=== PATIENT | female | born 1990 | race Hispanic/Latino ===

== ENCOUNTER 2018-03-01 23:32 | Inpatient (IN) | payer OTHER ==
[2018-03-02] MEDS ORDERED: ZOFRAN IV ONE ×2 (00:44→03:32)
[2018-03-02] MEDS ORDERED: NACL 0.9% 1000 ML 1,000 ML IV ONE ×3 (00:45→15:52)
--- NOTE | 2018-03-02 00:48 | Emergency Department Report ---
Stated Complaint: MISCARRIAGE - HPI History of Present Illness: 28-year-old female presents to the emergency department with a complaint of pelvic cramping and heavy vaginal bleeding. 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 Patient says that she has pretty had the miscarriage but she has been passing large clots and has had heavy vaginal bleeding all day. She says that she is going through multiple pads per hour, and is bleeding through her clothes and her mattress. She is now very anxious, feeling dizzy, nauseated. - ROS Review of Systems: Positive for pelvic cramping, heavy vaginal bleeding, dizziness, nausea - Exam Vital Signs: Vital Signs 03/02/18 00:08 Temperature 98.7 F Pulse Rate 101 H Respiratory 18 Rate Blood Pressure 115/80 O2 Sat by Pulse 97 Oximetry MSE screening note: Focused history and physical exam performed. Due to findings the following was ordered: I have ordered a CBC, BMP, quantitative level, type and screen. She will have a transvaginal/stent to ultrasound to evaluate for retained products of conception or other etiology of the heavy bleeding. She will get an IV, IV fluid and Zofran. ED Disposition for MSE Condition: Stable
[2018-03-02 01:15] LABS: Basophils # (Auto) 0.1 K/mm3 (0.0-0.1); Basophils % (Auto) 0.7 % (0.0-1.8); Eosinophils # (Auto) 0.2 K/mm3 (0.0-0.4); Eosinophils % (Auto) 2.2 % (0.0-4.3); Hematocrit 38.1 % (30.3-42.9); Lymphocytes # (Auto) 2.4 K/mm3 (1.2-5.4); Lymphocytes % (Auto) 23.7 % (13.4-35.0); Mean Corpuscular HGB Conc 34 % (30-34); Mean Corpuscular Hemoglobin 31 pg (28-32); Mean Corpuscular Volume 92 fl (79-97); Monocytes # (Auto) 0.6 K/mm3 (0.0-0.8); Monocytes % (Auto) 5.7 % (0.0-7.3); Platelet Count 270 K/mm3 (140-440); Red Blood Count 4.17 M/mm3 (3.65-5.03); Red Cell Distribution Width 12.8 % (13.2-15.2)
[2018-03-02 01:33] LABS: BUN/Creatinine Ratio 10; Blood Urea Nitrogen 8 mg/dL (7-17); Calcium 9.1 mg/dL (8.4-10.2); Hemolysis Index 3
[2018-03-02] MEDS ORDERED: NORCO 5/325 ONE (01:41)
[2018-03-02] MEDS ORDERED: NORCO 5/325 PO ONE (01:48)
--- NOTE | 2018-03-02 03:21 | Ultrasound Report ---
FINAL REPORT EXAM: US OB < = 14 WEEKS FETUS HISTORY: miscarriage, heavy vaginal bleeding TECHNIQUE: Transabdominal imaging was obtained of the pelvis. FINDINGS: The uterus is anteverted measuring 12.8 cm x 5 cm x 5.6 cm. A normal intrauterine gestational sac and IUP are not identified. There is a heterogeneous tissue like structure in the cervix measuring 5.5 cm x 6.3 cm x 7.9 cm. This is compatible with retained products of conception. The endometrial thickness in the fundus is 5.4 mm. The right ovary measures 4.7 cm x 3.5 cm x 3.8 cm. Within the right ovary is 4.7 cm anechoic cyst. The left ovary is not seen. Free fluid is not identified IMPRESSION: Heterogeneous echogenic material in the cervix compatible with an incomplete with retained products of conception 4.7 cm functional cyst in the right ovary. No evidence of free fluid.
--- NOTE | 2018-03-02 03:23 | Ultrasound Report ---
FINAL REPORT EXAM: US OB TRANSVAGINAL HISTORY: miscarriage, heavy vaginal bleeding TECHNIQUE: Additional transvaginal imaging was obtained of the pelvis. FINDINGS: The uterus measures 12.8 cm x 5 cm x 5.6 cm. There is no evidence of an intact gestational sac and IUP. Within the cervix is heterogeneous echogenic material measuring 5.5 cm x 6.3 cm x 7.9 cm compatible with retained products of conception and an incomplete miscarriage. Free fluid is not seen. In the uterine fundus the endometrial thickness is 5.4 mm. The right ovary measures 4.7 cm x 3.5 cm x 3.8 cm. Within the right ovary is an anechoic cyst measuring 4.7 cm in diameter. Left ovary is not seen. IMPRESSION: Echogenic material in the cervix compatible with an incomplete with retained products of conception. 4.7 cm functional cyst in the right ovary. No evidence of free fluid.
[2018-03-02] MEDS ORDERED: SUBLIMAZE IV ONE (03:32)
--- NOTE | 2018-03-02 03:40 | Emergency Department Report ---
HPI - General Chief Complaint: Vaginal Bleeding Time Seen by Provider: 03/02/18 03:21 - [facility] HPI: Room 25 The patient is a 28-year-old female presenting with chief complaint of vaginal bleeding. The patient states she had a miscarriage and was given Cytotec and took her first dose today at 15:00. The patient states she began having heavy vaginal bleeding and proximal one hour after the first dose of medication. Patient states the bleeding continued and she took her second dose at 19:00. The patient states she is passed approximately 10 baseball-sized blood clots vaginally. The patient states she gets dizzy whenever she stands she feels nauseous. The patient gives her pain score of 5-6/10 Location: Pelvis Duration: Onset 1600 Quality: Cramping Severity: 5-6/10 Modifying factors: [see above] Context: [see above] Mode of transportation: [not driving] ED Past Medical Hx - Past Medical History Hx Kidney Stones: Yes (2006) - Surgical History Past Surgical History?: No - Family History Family history: no significant - Social History Smoking Status: Former Smoker (none 5 years) Substance Use Type: Alcohol (rarely) - Medications Home Medications: Home Medications Medication Instructions Recorded Confirmed Last Taken Type Biotin 2 cap PO DAILY 08/08/14 08/08/14 08/07/14 History HYDROcodone/ACETAMINOPHEN [Lortab 15 ml PO Q4-6H PRN #30 dose 08/08/14 Unknown Rx 10 mg-300 mg per 15 ML ORAL LIQ] Vit-Fe Fumar-FA [ 1 each PO ONCE 08/08/14 08/08/14 08/07/14 History Vitamin] ED Review of Systems ROS: Stated complaint: MISCARRIAGE Other details as noted in HPI Constitutional: weakness Eyes: denies: eye pain ENT: denies: throat pain Respiratory: no symptoms reported Cardiovascular: denies: chest pain Endocrine: no symptoms reported Gastrointestinal: abdominal pain, nausea Genitourinary: abnormal menses Musculoskeletal: back pain Neurological: other (lightheadedness) Physical Exam - Physical Exam Vital Signs: Vital Signs 03/02/18 03/02/18 03/02/18 00:08 01:11 01:58 Temperature 98.7 F 98.7 F Pulse Rate 101 H 94 H Respiratory 18 16 16 Rate Blood Pressure 115/80 115/80 Blood Pressure [Left] O2 Sat by Pulse 97 98 98 Oximetry 03/02/18 02:00 Temperature Pulse Rate 89 Respiratory 14 Rate Blood Pressure Blood Pressure 109/65 [Left] O2 Sat by Pulse 99 Oximetry Physical Exam: GENERAL: The patient is well-developed well-nourished female lying on stretcher appearing pale. [] HEENT: Normocephalic. Atraumatic. Extraocular motions are intact. Patient has moist mucous membranes. NECK: Supple. Trachea midline CHEST/LUNGS: Clear to auscultation. There is no respiratory distress noted. HEART/CARDIOVASCULAR: Regular. There is no tachycardia. There is no gallop rub or murmur. ABDOMEN: Abdomen is soft, with suprapubic discomfort. Patient has normal bowel sounds. There is no abdominal distention. SKIN: There is no rash. There is no edema. There is no diaphoresis. NEURO: The patient is awake, alert, and oriented. The patient is cooperative. The patient has normal speech MUSCULOSKELETAL: There is no evidence of acute injury. PELVIC: Heavy vaginal bleeding with clots. 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 Elias. Will admit the patient to mother baby ED Medical Decision Making - Lab Data Result diagrams: 03/02/18 00:51 03/02/18 00:51 - Differential Diagnosis retained products of conception Critical care attestation.: If time is entered above; I have spent that time in minutes in the direct care of this critically ill patient, excluding procedure time. ED Disposition Clinical Impression: Incomplete , Episode of heavy vaginal bleeding, Retained products of conception Disposition: OP ADMIT IP TO THIS HOSP Is pt being admited?: Yes Does the pt Need Aspirin: No Condition: Fair Referrals: PRIMARY CARE, [Primary Care Provider] - 3-5 Days Time of Disposition: 05:03
--- NOTE | 2018-03-02 08:45 | History and Physical Report ---
History of Present Illness Date of examination: 03/02/18 Date of admission: 03/02/18 05:01 Chief complaint: vaginal bleeding History of present illness: 28y/o @ 6 weeks ega that presents with vaginal bleeding and passage of clots. The patient reports feeling lightheaded. Pelvic ultrasound demonstrated retained POC in the lower uterus or possible cervix. The patient was advised that a D&C would be beneficial but she declines. The patient was using cytotec for facilitate passage of tissue when the bleeding became excessive Past History Past Medical History: other (obesity) Past Surgical History: cholecystectomy, other (laparoscopy) Social history: - Obstetrical History : 2 Para: 1 Hx # Term Pregnancies: 1 Number of Pregnancies: 0 Spontaneous Abortions: 0 Induced : 0 Number of Living Children: 1 Medications and Allergies Allergies Allergy/AdvReac Type Severity Reaction Status Date / Time No Known Allergies Allergy Verified 08/08/14 07:17 Home Medications Medication Instructions Recorded Confirmed Last Taken Type Biotin 2 cap PO DAILY 08/08/14 08/08/14 08/07/14 History HYDROcodone/ACETAMINOPHEN [Lortab 15 ml PO Q4-6H PRN #30 dose 08/08/14 Unknown Rx 10 mg-300 mg per 15 ML ORAL LIQ] Vit-Fe Fumar-FA [ 1 each PO ONCE 08/08/14 08/08/14 08/07/14 History Vitamin] Active Meds: Active Medications Acetaminophen (Tylenol) 650 mg PO Q4H PRN PRN Reason: Pain, Mild (1-3) Dextrose/Lactated Ringer's (D5lr) 1,000 mls @ 125 mls/hr IV DIRECT ELIZABETH Methylergonovine Maleate (Methergine) 0.2 mg PO Q8HR ELIZABETH Methylergonovine Maleate (Methergine) 0.2 mg IM ONCE ONE Stop: 03/02/18 08:39 Ondansetron HCl (Zofran) 4 mg IV Q8H PRN PRN Reason: Nausea And Vomiting Oxycodone/Acetaminophen (Percocet 5/325) 2 tab PO Q6H PRN PRN Reason: Pain, Moderate (4-6) Review of Systems All systems: negative Constitutional: fatigue, weakness Genitourinary: vaginal bleeding, pelvic pain - Vital Signs Vital signs: Vital Signs Temp Pulse Resp BP Pulse Ox 98.7 F 101 H 18 115/80 97 03/02/18 00:08 03/02/18 00:08 03/02/18 00:08 03/02/18 00:08 03/02/18 00:08 Temp Pulse Resp BP Pulse Ox 97.9 F 82 18 93/65 99 03/02/18 07:51 03/02/18 07:51 03/02/18 07:51 03/02/18 07:51 03/02/18 07:51 - Physical Exam Breasts: Positive: deferred Cardiovascular: Regular rate Lungs: Positive: Clear to auscultation Abdomen: Positive: normal appearance Results Result Diagrams: 03/02/18 13:05 03/02/18 00:51 Abnormal lab results 03/02/18 03/02/18 03/02/18 Range/Units 00:51 00:51 00:51 RDW 12.8 L (13.2-15.2) % Glucose 107 H (65-100) mg/dL HCG, Quant 7910 H (0-4) mIU/mL All other labs normal. Assessment and Plan - Patient Problems (1) Episode of heavy vaginal bleeding Current Visit: Yes Status: Acute Plan to address problem: will admit for observation administer methergine expectant management (2) Incomplete Current Visit: Yes Status: Acute (3) Retained products of conception Current Visit: Yes Status: Acute
[2018-03-02] MEDS ORDERED: METHERGINE IM NR (09:30)
[2018-03-02] MEDS ORDERED: MORPHINE IV PRN (09:30)
[2018-03-02] MEDS: D5LR 1,000 ML IV SCH ×2 (09:40→20:52)
[2018-03-02] MEDS ORDERED: ZOFRAN IV PRN (10:00)
[2018-03-02] MEDS: PERCOCET 5/325 PO PRN ×2 (10:35→20:56)
[2018-03-02 13:33] LABS: Hematocrit 26.8 % (30.3-42.9); Hemoglobin 9.1 gm/dl (10.1-14.3)
[2018-03-02] MEDS: METHERGINE PO SCH ×3 (16:00→22:16)
[2018-03-02] MEDS: TYLENOL PO PRN (18:35)
[2018-03-03] MEDS: METHERGINE PO SCH ×3 (06:30→22:18)
[2018-03-03] MEDS: TYLENOL PO PRN ×2 (06:30→11:45)
[2018-03-03 07:20] LABS: Hematocrit 22.1 % (30.3-42.9); Hemoglobin 7.6 gm/dl (10.1-14.3)
--- NOTE | 2018-03-03 09:38 | Ultrasound Report ---
ULTRASOUND PELVIS COMPLETE INDICATION: Incomplete . COMPARISON: Yesterday. FINDINGS: Transabdominal pelvic ultrasound demonstrates a prominent echogenic endometrial thickness at approximately 2 cm towards the fundus, image 23 with some hemorrhagic material not excluded. No viable intrauterine gestation. Homogenous, 10.1 x 4.6 x 6.5 cm anteverted uterus. No significant pelvic free fluid. Right ovary is 4.7 x 2.4 x 3.4 cm with a 2.9 cm cyst. Unremarkable left ovary at 2.6 x 1.1 x 1.6 cm. CONCLUSION: 1. Prominent/thickened echogenic endometrium with some hemorrhagic material again not excluded in light of provided history. 2. Few other findings, as above. Thank you for the opportunity to participate in this patient's care.
[2018-03-03] MEDS ORDERED: NACL 0.9% 500 ML 500 ML IV NR (11:45)
[2018-03-03] MEDS: D5LR 1,000 ML IV SCH (11:47)
--- NOTE | 2018-03-03 11:49 | Progress Note ---
Assessment and Plan - Patient Problems (1) Episode of heavy vaginal bleeding Current Visit: Yes Status: Acute (2) Incomplete Current Visit: Yes Status: Acute (3) Retained products of conception Current Visit: Yes Status: Acute Plan to address problem: will proceed with d&c transfuse 2 units prbcs for symptomatic anemia Subjective - Subjective Date of service: 03/03/18 Interval history: The patient reports still having vaginal bleeding. She complains of a headache while sitting up and is unable to ambulate without feeling dizzy. Pelvic ultrasound demonstrates a thickened endometrial stripe of 2cm likely consistent with retained products. The patient has elected to proceed with a D&C after failing medical management. Patient reports: dizzy ambulation Objective - Vital Signs Latest vital signs: Vital Signs Temp Pulse Resp BP BP Pulse Ox 03/03/18 09:45 97.8 F 86 20 92/67 03/03/18 03:34 97.9 F 79 16 99/62 100 03/02/18 23:16 98.9 F 103 H 18 123/65 96 03/02/18 20:00 97.5 F L 85 20 103/53 95 03/02/18 15:45 97.7 F 105 H 18 92/44 100 Intake and Output 03/02/18 03/03/18 03/03/18 22:59 06:59 14:59 Intake Total 1000 220 Output Total 450 Balance 550 220 Intake: IV 1000 D5lr 1,000 ml @ 125 mls/ 1000 hr IV DIRECT ELIZABETH Rx#: [id number] Oral 220 Output: Urine 450 Void 450 Other: Intake, Other Source Saline Solution Total, Intake Amount 120 Total, Output Amount 250 Voiding Method Bedside Commode # Voids Void 2 - Labs Labs: Abnormal lab results 03/02/18 03/02/18 03/03/18 Range/Units 00:51 13:05 06:53 Hgb 9.1 L D 7.6 L (10.1-14.3) gm/dl Hct 26.8 L D 22.1 L (30.3-42.9) % Crossmatch See Detail
--- NOTE | 2018-03-03 16:59 | Operative Report ---
Operative Report Operative Report: Date of surgery: 03/03/2018 Preoperative diagnosis: Incomplete Postoperative diagnosis: Same as above Procedure: Suction dilatation and curettage Surgeon: Faby Elias M.D. Anesthesia: Gen. endotracheal anesthesia Estimated blood loss: 100 mL Findings: Products of conception Indication: 28-year-old 001 at approximately 6-7 weeks estimated gestational age who presents with a history of incomplete . The patient attempted medical management without complete resolution in her miscarriage. She continues to have significant vaginal bleeding with a development of symptomatic anemia. Procedure: The patient was taken to the operating room and given general endotracheal anesthesia without complication. The patient is prepped and draped in a normal sterile fashion. A bivalve speculum was placed in the patient's vagina and a single-tooth tenaculums placed on the anterior lip of the cervix. The uterine cavity was then sounded. The cervical os was then dilated with graduated dilators. A number 7 [place]an curved cannula was placed to suction and found to be adequate. The cannula was then gently inserted into the dilated cervical os. Evacuation of the uterine contents were performed. Sharp curettage and endometrial surface was performed until cry was achieved. The cannula was then gently reinserted into the uterine cavity to evacuate any additional contents. After removal of the cannula there was no evidence of any active bleeding. The vaginal instruments were then removed atraumatically. The patient was then successfully extubated and taken to the recovery room in stable condition. All sponge laps and needle counts were correct 2. Pathology consisted of products of conception.
[2018-03-03] MEDS ORDERED: TORADOL IV PRN (17:00)
[2018-03-03] MEDS ORDERED: SUBLIMAZE ONE (17:12)
[2018-03-03] MEDS ORDERED: VERSED ONE (17:12)
[2018-03-03] MEDS ORDERED: DIPRIVAN 10 MG/ML IV ONE (17:19)
[2018-03-03] MEDS ORDERED: DILAUDID IV PRN (17:26)
--- NOTE | 2018-03-03 17:26 | Anesthesia Day of Surgery ---
Anesthesia Day of Surgery - Day of Surgery Patient Examined: Yes Patient H&P Reviewed: Yes Patient is NPO: Yes
--- NOTE | 2018-03-03 17:26 | Anesthesia Consultation ---
Anesthesia Consult and Med Hx Date of service: 03/03/18 - Airway Anesthetic Teeth Evaluation: Good ROM Head & Neck: Adequate Mental/Hyoid Distance: Adequate Mallampati Class: Class II Intubation Access Assessment: Probably Good - Pulmonary Exam CTA: Yes - Cardiac Exam Cardiac Exam: RRR - Pre-Operative Health Status ASA Pre-Surgery Classification: ASA3 Proposed Anesthetic Plan: General - Pulmonary Hx Smoking: Yes (8 YEARS 1/2 PPD; CIGARETTES) Hx Asthma: No COPD: No - Cardiovascular System Hx Hypertension: No Hx Heart Attack/AMI: No - Central Nervous System Hx Seizures: No CVA: No - Gastrointestinal Hx Gastroesophageal Reflux Disease: Yes (mild) - Endocrine Hx Renal Disease: No Hx Liver Disease: No Hx Insulin Dependent Diabetes: No Hx Thyroid Disease: No - Hematic Hx Anemia: Yes - Other Systems Hx Alcohol Use: Yes (weekly) Hx Cancer: No Hx Obesity: Yes - Additional Comments Anesthesia Medical History Comments: Presenting with fatigue, dizziness 2/2 anemia from missed AB @ 6wks with retained POC. NPO >8hrs. No hx anesthetic complications. Unit 2 of 2 pRBCs transfusing upon arrival to OR.
[2018-03-03] MEDS ORDERED: METHERGINE IM ONE (17:33)
[2018-03-03] MEDS ORDERED: SILVER NITRATE TP ONE (17:34)
[2018-03-03] MEDS ORDERED: ZOFRAN ONE (17:40)
[2018-03-03] MEDS ORDERED: DECADRON ONE (17:59)
[2018-03-03] MEDS ORDERED: NACL 0.9% 1000 ML 1,000 ML IV SCH (18:00)
[2018-03-03] MEDS ORDERED: BENADRYL ONE (18:02)
[2018-03-03] MEDS ORDERED: DEMEROL ONE (18:08)
[2018-03-03] MEDS ORDERED: PEPCID IV ONE (18:12)
[2018-03-03] MEDS ORDERED: NACL 0.9% 1000 ML 1,000 ML ONE (18:23)
--- NOTE | 2018-03-03 21:39 | Post Anesthesia Evaluation ---
- Post Anesthesia Evaluation Patient Participated: Yes Airway Patent: Yes Stable Respiratory Function: Yes Nausea/Vomiting: No Temp > 96.8F: Yes Pain Manageable: Yes Adequeate Hydration: Yes Anesthesia Complications: No Other Comments: After arrival to PACU, patient complained of itching and was noted to have hive-like rash on arms, chest, abdomen, thighs, and legs. There was no associated dyspnea, wheezing, or hypotention. Presumed allergic reaction to medication, likely methergine as this was the last medication given in surgery. Treated with benadryl 50mg IV, decadron 12mg IV, and pepcid 20mg IV with improvement in rash and itching at time of transfer to floor.
[2018-03-04 01:47] VITALS: BP 100/67
[2018-03-04 05:42] LABS: Hematocrit 30.6 % (30.3-42.9); Hemoglobin 10.5 gm/dl (10.1-14.3)
[2018-03-04] MEDS: D5LR 1,000 ML IV SCH (05:50)
[2018-03-04] MEDS: METHERGINE PO SCH (05:51)
--- NOTE | 2018-03-04 08:24 | Progress Note ---
Assessment and Plan - Patient Problems (1) Episode of heavy vaginal bleeding Current Visit: Yes Status: Acute Plan to address problem: Patient doing well Discharge home (2) Incomplete Current Visit: Yes Status: Acute (3) Retained products of conception Current Visit: Yes Status: Acute Subjective - Subjective Date of service: 03/04/18 Principal diagnosis: incomplete Interval history: The patient reports feeling much better today. Her headache has subsided and she is able to sit up and ambulate without difficulty. She is tolerating a regular diet and her pain is well controlled. The patient only reports scant amount of vaginal bleeding. Patient reports: appetite normal, voiding normally, pain well controlled Objective - Vital Signs Latest vital signs: Vital Signs Temp Pulse Resp BP BP Pulse Ox 03/04/18 01:46 98.3 F 77 16 100/67 95 03/03/18 22:00 98.4 F 93 H 18 99/45 96 03/03/18 19:55 97.9 F 76 18 113/68 100 03/03/18 19:30 97.8 F 74 17 104/61 98 03/03/18 19:15 68 15 103/62 95 03/03/18 19:00 76 17 102/62 96 03/03/18 18:45 75 20 101/56 99 03/03/18 18:30 75 20 103/53 99 03/03/18 18:15 93 H 11 L 107/71 100 03/03/18 18:05 102 H 16 128/105 100 03/03/18 18:00 103 H 13 104/66 100 03/03/18 17:55 91 H 11 L 103/57 100 03/03/18 17:46 98.0 F 97 H 16 109/48 100 03/03/18 16:55 98.3 F 85 18 101/49 99 03/03/18 16:40 98.8 F 85 20 97/55 03/03/18 15:17 98.7 F 79 18 98/54 03/03/18 14:55 98.6 F 78 18 91/51 99 03/03/18 14:25 98.9 F 78 18 98/58 99 03/03/18 13:55 98.8 F 76 18 102/54 100 03/03/18 13:25 98.8 F 73 18 92/52 100 03/03/18 13:10 98.7 F 77 18 91/47 09/26/18 09:45 97.8 F 86 20 92/67 Intake and Output 03/03/18 03/04/18 03/04/18 22:59 06:59 14:59 Intake Total 2250 Balance 2250 Intake: IV 2000 D5lr 1,000 ml @ 125 mls/ 1000 hr IV DIRECT ELIZABETH Rx#: [id number] Blood Product 250 Leukoreduced Red Blood 250 Cells Unit [id number] Leukoreduced Red Blood 0 Cells Unit [id number] Other: Voiding Method Toilet # Voids Void 5 - Exam Abdomen: Present: normal appearance, soft - Labs Labs: Abnormal lab results 03/02/18 Range/Units 00:51 Crossmatch See Detail
--- NOTE | 2018-03-04 08:27 | Discharge Summary ---
Providers - Providers Date of Admission: 03/02/18 05:01 Date of discharge: 03/04/18 Attending physician: ADELINE JUAREZ Primary care physician: BOILER/CHILLER TECHNICIAN Hospitalization Reason for admission: other (complete ) Procedure: other (suction dilatation and curettage) Discharge diagnosis: other (incomplete ) Hospital course: The patient was admitted through the emergency department for excessive vaginal bleeding. The patient received Cytotec provider to facilitate completion of her miscarriage. A pelvic ultrasound was performed in the ED with findings of retained products of conception. The patient declined surgical management and wanted to be managed with medical management. Patient was observed however she continues to have worsening of her symptoms. The patient was counseled for suction dilatation and curettage and she was also transfused 2 units of packed red blood cells with significant improvement of symptoms. The patient was discharged home when she met discharge criteria. Condition at discharge: Good Disposition: TO HOME OR SELFCARE - Discharge Diagnoses (1) Episode of heavy vaginal bleeding Status: Acute (2) Incomplete Status: Acute (3) Retained products of conception Status: Acute Plan - Discharge Medications Prescriptions: Ferrous Sulfate 325 mg PO QDAY #30 tablet. Ibuprofen [Motrin] 800 mg PO Q8HR PRN #60 tablet PRN Reason: Pain , Severe (7-10) oxyCODONE /ACETAMINOPHEN [Percocet 5/325] 1 tab PO Q6HR PRN #30 tablet PRN Reason: Pain - Provider Discharge Summary Activity: other Additional instructions: [] Smoking cessation referral if applicable(refer to patient education folder for contact #) [] Refer to [facility] Booklet Call your doctor immediately for: * Fever > 100.5 * Heavy vaginal bleeding ( >1 pad per hour) * Severe persistent headache * Shortness of breath * Reddened, hot, painful area to leg or breast * Pelvic rest for 2 weeks Follow-up in 2 weeks Patient may follow up with Dr. Elias or her previous SWITCH MAKER provider [facility] obn [address] [place] [id number] - Follow up plan
== END 2018-03-04 14:25 | disposition home or self-care (01) | DRG 770 ==
LOC: ED 23:32 → OB 03-02 05:01
PROVIDERS: ADMIT Obstetrics & Gynecology; ATTEND Obstetrics & Gynecology
PROC: 10D17ZZ Extraction of Products of Conception, Retained, Via Natural or Artificial Opening (ICD-10-PCS; principal; 2018-03-03)
PROC: 30233N1 Transfusion of Nonautologous Red Blood Cells into Peripheral Vein, Percutaneous Approach (ICD-10-PCS; 2018-03-03)
DX: O03.4 Incomplete spontaneous abortion without complication (principal); Z68.41 Body mass index [BMI] 40.0-44.9, adult; N93.9 Abnormal uterine and vaginal bleeding, unspecified; E66.9 Obesity, unspecified; K21.9 Gastro-esophageal reflux disease without esophagitis
CPT/HCPCS: 36415; 76801; 76817; 76856; 80048; 84702; 85014; 85018; 85025; 86850; 86900; 86901; 86920; 88305; J1100; J1200; J1885; J2175; J2210; J2250; J2405; J2704; J3010; J7030; J7040; J7121; P9016